=== PATIENT | male | born 1955 | race American Indian/Alaskan Native ===

== ENCOUNTER 2019-01-14 11:40 | Day surgery (SDC) | payer OTHER ==
--- NOTE | 2019-01-14 12:09 | Anesthesia Day of Surgery ---
Anesthesia Day of Surgery - Day of Surgery Patient Examined: Yes Patient H&P Reviewed: Yes Patient is NPO: Yes Beta Blockers: Yes
--- NOTE | 2019-01-14 12:13 | Anesthesia Consultation ---
Anesthesia Consult and Med Hx Date of service: 01/14/19 - Airway Anesthetic Teeth Evaluation: Chipped ROM Head & Neck: Adequate (Decreased C3-C4 fx and wore halo) Mental/Hyoid Distance: Adequate Mallampati Class: Class II Intubation Access Assessment: Probably Good - Pre-Operative Health Status ASA Pre-Surgery Classification: ASA3 Proposed Anesthetic Plan: General - Pulmonary Hx Smoking: Yes (1 PPD X 40 YRS) COPD: Yes (DAILY INHALER USE) Hx Sleep Apnea: Yes (DX SLEEP APNEA WITH CPAP USE) - Cardiovascular System Hx Hypertension: Yes (X 25 YRS) Hx Coronary Artery Disease: Yes (CHF. EF 35-40% ECHO 130067) Hx Heart Attack/AMI: Yes (X 4) Hx Valvular Heart Disease: Yes (2004-AVR; can climb 14 stairs) Hx Peripheral Vascular Disease: No - Central Nervous System Hx Neuromuscular Disorder: Yes (Gout) Hx Back Pain: Yes (WITH SCIATIC PAIN , NECK PAIN) - Other Systems Hx Cancer: No
[2019-01-14] MEDS ORDERED: SUBLIMAZE IV PRN (12:16)
[2019-01-14] MEDS ORDERED: ZOFRAN IV PRN (12:16)
[2019-01-14 12:46] LABS: INR 1.06 (0.87-1.13)
[2019-01-14 12:47] LABS: Partial Thromboplastin Time 26.5 Sec. (24.2-36.6)
[2019-01-14] MEDS ORDERED: LACTATED RINGERS 1,000 ML IV SCH (13:00)
[2019-01-14] MEDS ORDERED: GENTAMICIN 160 MG in NACL 0.9% 100 ML IV ONE (13:15)
[2019-01-14] MEDS ORDERED: DILAUDID ONE (14:21)
[2019-01-14] MEDS ORDERED: DIPRIVAN 10 MG/ML IV ONE (14:21)
[2019-01-14] MEDS ORDERED: XYLOCAINE MPF 2% ONE (14:25)
[2019-01-14] MEDS ORDERED: ANCEF ONE ×3 (14:33→14:35)
--- NOTE | 2019-01-14 14:54 | Post Operative Note ---
Date of procedure: 01/14/19 Pre-op diagnosis: inc psa 9.1 Post-op diagnosis: same Findings: 25 gram gland Procedure: cysto pus bx Anesthesia: GETA Surgeon: EDWIN LAMBERT Estimated blood loss: minimal Pathology: list (prostate) Specimen disposition: to lab Condition: stable Disposition: PACU
--- NOTE | 2019-01-14 14:56 | Discharge Summary ---
Short Stay Discharge Plan Activity: other (no straining ) Weight Bearing Status: Full Weight Bearing Diet: low salt Special Instructions: other (inc fluids ) Follow up with: [facility] [Primary Care Provider] - 7 Days EWDIN LAMBERT MD [Staff Physician] - 10 Days
--- NOTE | 2019-01-14 15:11 | Operative Report ---
PREOPERATIVE DIAGNOSIS: Elevated PSA 9.1. POSTOPERATIVE DIAGNOSIS: Elevated PSA 9.1 with family history of prostate cancer. PROCEDURE: Flexible cystoscopy, prostate ultrasound biopsy. SURGEON: García Cabral MD ANESTHESIA: General. FINDINGS: This is a gentleman with history of heart valve, who was medicated with Ancef and gentamycin and was placed on Lovenox for preparation of prostate biopsy. His brother had prostate cancer. His PSA is 9.13 and now presents for treatment. DESCRIPTION OF PROCEDURE: The patient was brought to the operating room and placed on the operating table. Following induction of anesthesia, he was placed in lithotomy position, prepped and draped in usual sterile fashion. Flexible cystoscopy showed some mild prostatic enlargement, bilobar hypertrophy. No significant trabeculation. Bladder was well visualized. There were no lesions. At this point, ultrasound was placed in the rectum after we prepped him with Betadine, prepped the rectum with Betadine. Prostate gland measured approximately 25 grams. Six biopsies in right and 6 in left were done. The patient tolerated the procedure well. No significant complications. He was brought to recovery room. We used Proctofoam just to be safe. There was no significant bleeding. Family notified, brought to recovery in stable condition. JOB# [id number] MIKAEL/GALE
[2019-01-14 15:53] VITALS: BP 117/67
--- NOTE | 2019-01-14 17:48 | Ultrasound Report ---
Limited prostate ultrasound INDICATION: Prostate biopsy guidance 2 transrectal images were obtained to document a prostate biopsy performed by Dr. Cabral in conjunc tion with radiology personnel. Prostate has a diameter of 4.5 cm with volume calculated at 25 cc. A l arge calcification is seen. Signer Name: Job Cancino MD Signed: 01/14/2019 5:44 PM Workstation Name: [id number]
--- NOTE | 2019-01-14 19:14 | Post Anesthesia Evaluation ---
- Post Anesthesia Evaluation Patient Participated: Yes Airway Patent: Yes Stable Respiratory Function: Yes Nausea/Vomiting: No Temp > 96.8F: Yes Pain Manageable: Yes Adequeate Hydration: Yes Anesthesia Complications: No
== END 2019-01-14 16:55 | disposition home or self-care (01) ==
LOC: OR 11:40
PROVIDERS: ATTEND Urology
DX: N40.0 Benign prostatic hyperplasia without lower urinary tract symptoms (principal); Z85.46 Personal history of malignant neoplasm of prostate
CPT/HCPCS: 36415; 52000; 55700; 76872; 76942; 84132; 85610; 85730; 88305; J0690; J1170; J1580; J2704; J7120

== ENCOUNTER 2021-09-18 20:31 | Emergency (ER) | payer MEDICARE ==
[2021-09-18 21:10] VITALS: BP 137/95
--- NOTE | 2021-09-19 04:39 | Event Note ---
ED Screening Note Date of service: 09/19/21 Time: 04:36 ED Screening Note: Patient 65-year-old male with history of hypertension, valve prolapse, [id number] smoker, hyperlipidemia, who presents for bilateral rib and flank pain states history of pneumonia 3 months ago, now with intermittent cough and flank pain radiating to low back bilateral. Patient denies fall injury or trauma. There is concern for pneumonia, had a negative Covid test on yesterday. Patient states urinary frequency and urgency denies hematuria or dysuria. Patient is on Lasix, Coumadin, amlodipine, atorvastatin. Symptoms exacerbated by movement and deep breathing. Nothing tried. There is no fever no chills no shortness of breath no chest pain This initial assessment/diagnostic orders/clinical plan/treatment(s) is/are subject to change based on patients health status, clinical progression and re- assessment by fellow clinical providers in the ED. Further treatment and workup at subsequent clinical providers discretion. Patient/guardian urged not to elope from the ED as their condition may be serious if not clinically assessed and managed. Initial orders include: CXR, UA
--- NOTE | 2021-09-19 05:13 | XRay Report ---
CHEST 2 VIEWS INDICATION / CLINICAL INFORMATION: Rib pain. COMPARISON: 08/19/19. FINDINGS: SUPPORT DEVICES: None. HEART / MEDIASTINUM: Median sternotomy and aortic valve prosthesis. Mild cardiomegaly. Pulmonary vasc ulature is normal. LUNGS / PLEURA: No significant pulmonary or pleural abnormality. No pneumothorax. ADDITIONAL FINDINGS: No acute osseous abnormality is present. IMPRESSION: No acute findings. Signer Name: Alfredo Head MD Signed: 09/19/2021 5:08 AM Workstation Name: [id number]
[2021-09-19] MEDS ORDERED: KETOROLAC 10 MG TAB PO ONE (06:35)
[2021-09-19] MEDS ORDERED: CYCLOBENZAPRINE 10 MG TAB PO ONE (06:35)
[2021-09-19 06:54] LABS: Hyaline Casts,Urine 1 /LPF; Mucus,Urine FEW /HPF
[2021-09-19 07:00] LABS: Bilirubin,Urine Negative (Negative); Color,Urine Yellow (Yellow)
[2021-09-19 07:01] LABS: Blood,Urine Trace (Negative); Protein,Urine <15 mg/dL mg/dL (Negative); Urobilinogen,Urine < 2.0 mg/dL (<2.0)
--- NOTE | 2021-09-19 07:31 | Emergency Department Report ---
ED Back Pain/Injury HPI - General Chief Complaint: Back Pain/Injury Stated Complaint: BACK PAIN Time Seen by Provider: 09/19/21 06:12 Source: patient Limitations: No Limitations - History of Present Illness Initial Comments: 65-year-old black male with a past medical history of hypertension, hyperlipidemia, valve replacement, COPD, and prostate cancer presents to the emergency department for evaluation of 4-day history of mid to lower back pain along with intermittent cough. He states that the pain radiates to his flank areas also. He denies fall, injury, or trauma. He states that he was diagnosed with pneumonia about 3 months ago and this pain feels similar to the pain that he experienced in he says that back pain is exacerbated by movement and deep breathing. He has not tried anything for the pain. He denies fever, shortness of breath, chest pain, and dysuria. MD Complaint: back pain -: Gradual, days(s) (4.) Similar Symptoms Previously: Yes Place: home Radiation: flank Severity scale (0 -10): 8 Quality: aching Consistency: intermittent Worsens With: movement, deep breaths/cough Associated Symptoms: cough. denies: confusion, weakness, chest pain, numbness, difficulty walking, difficulty urinating, diaphoresis, incontinence, fever/chills, constipation, headaches, abdominal pain, loss of appetite, malais e, nausea/vomiting, rash, seizure, shortness of breath, syncope - Related Data Previous Rx's Medication Instructions Recorded Last Taken Type Albuterol Sulfate [Proventil Hfa] 2 puff IH PRN PRN 30 Days 08/22/19 Unknown Rx Amiodarone [Cordarone 200 MG TAB] 200 mg PO BID #60 tablet 08/22/19 Unknown Rx AtorvaSTATin [Lipitor] 80 mg PO QHS #30 08/22/19 Unknown Rx Budesonide/Formoterol Fumarate 2 puff IH BID 30 Days 08/22/19 Unknown Rx [Symbicort 160-4.5 Mcg Inhaler] Furosemide [Lasix TAB] 80 mg PO DAILY #30 tablet 08/22/19 Unknown Rx Gabapentin 300 mg PO TID #90 cap 08/22/19 Unknown Rx Metoprolol [Lopressor TAB] 25 mg PO TID #90 tablet 08/22/19 Unknown Rx Warfarin Sodium [Coumadin] 5 mg PO DAILY #30 tablet 02/22/20 Unknown Rx lisinopriL [Zestril TAB] 40 mg PO QDAY #30 08/22/19 Unknown Rx oxyCODONE /ACETAMINOPHEN [Percocet 1 tab PO Q6H PRN #12 tablet 08/22/19 Unknown Rx 5/325 mg] Cyclobenzaprine [Flexeril] 10 mg PO TID PRN #21 tab 09/19/21 Unknown Rx Allergies Allergy/AdvReac Type Severity Reaction Status Date / Time bupropion [From Wellbutrin] Allergy Hives Verified 01/09/19 13:52 ciprofloxacin [From Cipro] AdvReac MUSCLE PAIN Verified 01/09/19 13:52 ED Review of Systems ROS: Stated complaint: BACK PAIN Other details as noted in HPI Comment: All other systems reviewed and negative Constitutional: denies: chills, fever Respiratory: cough. denies: shortness of breath Cardiovascular: denies: chest pain, palpitations, orthopnea, edema, syncope, paroxysmal nocturnal dyspnea Endocrine: no symptoms reported Gastrointestinal: denies: abdominal pain, nausea, vomiting Genitourinary: denies: urgency, dysuria, frequency, hematuria, discharge, testicular pain Musculoskeletal: back pain Skin: denies: rash, lesions Neurological: denies: headache, weakness Psychiatric: denies: anxiety ED Past Medical Hx - Past Medical History Hx Hypertension: Yes Hx Heart Attack/AMI: Yes Hx Congestive Heart Failure: Yes Hx Diabetes: No Hx Deep Vein Thrombosis: Yes Hx Asthma: No Hx COPD: Yes Hx HIV: No - Surgical History Hx Coronary Stent: No Hx Open Heart Surgery: Yes (2003 AORTIC VALVE REPLACEMENT) Hx Appendectomy: Yes - Social History Smoking Status: Former Smoker - Medications Home Medications: Home Medications Medication Instructions Recorded Confirmed Last Taken Type Albuterol Sulfate [Proventil Hfa] 2 puff IH PRN PRN 30 Days 08/22/19 Unknown Rx Amiodarone [Cordarone 200 MG TAB] 200 mg PO BID #60 tablet 08/22/19 Unknown Rx AtorvaSTATin [Lipitor] 80 mg PO QHS #30 08/22/19 Unknown Rx Budesonide/Formoterol Fumarate 2 puff IH BID 30 Days 08/22/19 Unknown Rx [Symbicort 160-4.5 Mcg Inhaler] Furosemide [Lasix TAB] 80 mg PO DAILY #30 tablet 08/22/19 Unknown Rx Gabapentin 300 mg PO TID #90 cap 08/22/19 Unknown Rx Metoprolol [Lopressor TAB] 25 mg PO TID #90 tablet 08/22/19 Unknown Rx Warfarin Sodium [Coumadin] 5 mg PO DAILY #30 tablet 08/22/19 Unknown Rx lisinopriL [Zestril TAB] 40 mg PO QDAY #30 08/22/19 Unknown Rx oxyCODONE /ACETAMINOPHEN [Percocet 1 tab PO Q6H PRN #12 tablet 08/22/19 Unknown Rx 5/325 mg] Cyclobenzaprine [Flexeril] 10 mg PO TID PRN #21 tab 09/19/21 Unknown Rx ED Physical Exam - General Limitations: No Limitations General appearance: alert, in no apparent distress - Head Head exam: Present: atraumatic, normocephalic - Eye Eye exam: Present: normal appearance. Absent: conjunctival injection - Neck Neck exam: Present: normal inspection. Absent: tenderness, lymphadenopathy - Respiratory Respiratory exam: Present: normal lung sounds bilaterally. Absent: respiratory distress, wheezes, rales, rhonchi, stridor, chest wall tenderness, accessory muscle use, decreased breath sounds - Cardiovascular Cardiovascular Exam: Present: regular rate, normal heart sounds - GI/Abdominal GI/Abdominal exam: Present: soft, normal bowel sounds. Absent: distended, tenderness, guarding, rebound, rigid - Extremities Exam Extremities exam: Present: normal inspection - Back Exam Back exam: Present: normal inspection, tenderness (Bilateral mid to lower). Absent: CVA tenderness (R), CVA tenderness (L), paraspinal tenderness, vertebral tenderness - Neurological Exam Neurological exam: Present: alert, oriented X3, CN II-XII intact, normal gait, reflexes normal. Absent: motor sensory deficit - Psychiatric Psychiatric exam: Present: normal affect, normal mood - Skin Skin exam: Present: warm, dry, intact, normal color ED Course Vital Signs 09/18/21 21:09 Temperature 98.4 F Pulse Rate 64 Respiratory 18 Rate Blood Pressure 137/95 O2 Sat by Pulse 98 Oximetry - Reevaluation(s) Reevaluation #1: 09/19/21 07:31 Patient states the pain has improved since his been sitting in the waiting room, and it is now 4 out of 10. ED Medical Decision Making - Radiology Data Radiology results: report reviewed, image reviewed Chest x-ray: IMPRESSION: No acute findings. - Medical Decision Making 65-year-old black male with a past medical history of hypertension, hyperlipidemia, valve replacement, COPD, and prostate cancer presents to the emergency department for evaluation of 4-day history of mid to lower back pain along with intermittent cough. He states that the pain radiates to his flank areas also. He denies fall, injury, or trauma. He states that he was diagnosed with pneumonia about 3 months ago and this pain feels similar to the pain that he experienced in he says that back pain is exacerbated by movement and deep breathing. He has not tried anything for the pain. He denies fever, shortness of breath, chest pain, and dysuria. Chest x-ray without any acute abnormalities noted, no pneumonia noted. UA without urinary tract infection. Assessment consistent with musculoskeletal back pain. Patient will be treated with one-time dose of Toradol in the emergency department along with a dose of Flexeril, and then he will have Flexeril to take as needed at home for back pain. The provider will hold off on prescribing NSAIDs for home use secondary to oral anticoagulant use at home. He is advised to take medications as prescribed and follow-up with primary care provider if no improvement or worsening symptoms. Patient verbalized understanding of and agreement with plan of care. Critical care attestation.: If time is entered above; I have spent that time in minutes in the direct care of this critically ill patient, excluding procedure time. ED Disposition Clinical Impression: Back pain Qualifiers: Back pain location: low back pain Chronicity: acute Back pain laterality: bilateral Sciatica presence: without sciatica Qualified Code(s): M54.50 - Low back pain, unspecified Disposition: 01 HOME / SELF CARE / HOMELESS Is pt being admited?: No Does the pt Need Aspirin: No Condition: Stable Instructions: Acute Back Pain, Adult, Pain Without a Known Cause Additional Instructions: Take medications as prescribed follow-up with primary care provider. Prescriptions: Cyclobenzaprine [Flexeril] 10 mg PO TID PRN #21 tab PRN Reason: Muscle Spasm Referrals: [facility] [Primary Care Provider] - 3-5 Days Time of Disposition: 07:36
== END 2021-09-19 07:50 | disposition home or self-care (01) ==
LOC: ED 20:31
DX: M54.50 Low back pain, unspecified (principal); Z87.891 Personal history of nicotine dependence
CPT/HCPCS: 71046; 81001; 99283

== ENCOUNTER 2022-03-29 14:18 | Outpatient (CLI) | payer OTHER ==
[2022-03-29 15:13] LABS: Blood Urea Nitrogen 14 mg/dL (9-20)
--- NOTE | 2022-03-29 17:10 | Cat Scan Report ---
CT ABDOMEN AND PELVIS WITHOUT AND WITH CONTRAST INDICATION / CLINICAL INFORMATION: R82.90 ABNORMAL FINDINGS in urine. TECHNIQUE: Axial CT images were obtained through the abdomen and pelvis before and after IV contrast. All CT scans at this location are performed using CT dose reduction for ALARA by means of automated exposure control. COMPARISON: None available. FINDINGS: LOWER CHEST: Small bilateral pleural effusions, right greater than left. Aortic valve prosthesis. LIVER: No significant abnormality. GALLBLADDER: No significant abnormality. BILE DUCTS: No significant abnormality. PANCREAS: No significant abnormality. SPLEEN: No significant abnormality. ADRENALS: No significant abnormality. RIGHT KIDNEY / URETER: Anteriorly projecting right upper pole renal cyst with solid enhancing compone nt along the lateral margin, which measures 2.4 x 1.8 cm image 71 series 4. Additional areas of right upper pole scarring. LEFT KIDNEY / URETER: No significant abnormality. STOMACH / SMALL BOWEL: No significant abnormality. COLON: No significant abnormality. APPENDIX: Not visualized. PERITONEUM: No free fluid. No free air. No fluid collection. LYMPH NODES: No significant adenopathy. AORTA / ARTERIES: Moderate atherosclerotic calcification without acute abnormality. IVC / VEINS: No significant abnormality. URINARY BLADDER: Diffuse urinary bladder wall thickening and adjacent fat stranding REPRODUCTIVE ORGANS: No significant abnormality. ADDITIONAL FINDINGS: None. SKELETAL SYSTEM: No significant abnormality. IMPRESSION: 1. Cystic lesion with solid enhancing component in the upper pole of the right kidney is highly cecily rning for renal cell carcinoma. 2. Urinary bladder wall thickening with adjacent fat stranding is suggestive of cystitis. 3. Small bilateral pleural effusions. Signer Name: Edmundo Garcia MD Signed: 03/29/2022 5:06 PM Workstation Name: [id number]
== END 2022-03-29 14:19 | disposition home or self-care (01) ==
LOC: CT 14:18
PROVIDERS: ATTEND General Practice
DX: J90 Pleural effusion, not elsewhere classified (principal); R82.90 Unspecified abnormal findings in urine; N28.1 Cyst of kidney, acquired; I70.0 Atherosclerosis of aorta
CPT/HCPCS: 36415; 74178; 82565; 84520; Q9967